=== PATIENT | male | born 1990 | race Caucasian/White ===

== ENCOUNTER 2017-11-24 19:26 | Emergency (ER) | payer BC ==
[~2017-11-24] VITALS: Ht 188 cm; Wt 72.6 kg
[2017-11-24] MEDS ORDERED: CEFTRIAXONE 1 G VIAL ONE (20:01)
[2017-11-24] MEDS ORDERED: TDAP DIPH,PERTUSS,TET VAC/PF 0.5 ML DISP.SYRIN IM ONE (20:01)
[2017-11-24] MEDS: TDAP DIPH,PERTUSS,TET VAC/PF 0.5 ML DISP.SYRIN IM ONE (20:29)
[2017-11-24] MEDS: CEFTRIAXONE 1 G VIAL IM ONE (20:29)
--- NOTE | 2017-11-24 20:30 | NUR ---
Patient discharged to home in stable conditon. Written and verbal after care instructions given. Patient verbalizes understanding of instructions. Patient able to ambulate unassisted with steady gait. Patient left with all of his belongings.
[2017-11-24 20:38] VITALS: BP 155/86
== END 2017-11-24 20:30 | disposition home or self-care (01) ==
LOC: ER 19:29
DX: A64 Unspecified sexually transmitted disease (principal); F17.210 Nicotine dependence, cigarettes, uncomplicated
CPT/HCPCS: 87536; 90471; 90715; 96372; 99284; A4663; J0696; 36415